=== PATIENT | male | born 1955 | race Caucasian/White ===

== ENCOUNTER 2023-01-11 11:49 | Emergency (ER) | payer MEDICARE ==
[~2023-01-11] VITALS: Ht 177.8 cm; Wt 97.5 kg
[2023-01-11] MEDS ORDERED: Percocet 5-3251 EACH PO (16:12)
[2023-01-11 17:06] VITALS: BP 132/83
== END 2023-01-11 16:53 | disposition home or self-care (01) ==
LOC: ER 11:49
DX: S82.842A Displaced bimalleolar fracture of left lower leg, initial encounter for closed fracture (principal); W18.30XA Fall on same level, unspecified, initial encounter
CPT/HCPCS: 27810; 73590; 73600; 73610; 96374-59; 96375-59; 99152; 99284-25; J1170; J1885; J2405; J2704; J7030

== ENCOUNTER 2023-01-14 10:52 | Day surgery (SDC) | payer OTHER, MEDICARE ==
[~2023-01-14] VITALS: Ht 177.8 cm; Wt 101.4 kg
[2023-01-14] VITALS (8 sets, daily range): BP systolic 131–160; BP diastolic 64–89
[~2023-01-14 10:52] MED LIST: Percocet 5-3251 EACH PO
--- NOTE | 2023-01-14 12:39 | NUR ---
Ambulatory w/knee scooter in Day Surgery. History, Chart, Medications and Allergies reviewed before start of procedure. Patient confirms NPO status and agrees with scheduled surgery. Pre-Op teaching done. Pt verbalizes understanding. Patient States Post-Procedure ride home has been arranged.
--- NOTE | 2023-01-14 13:50 | NUR ---
TIME OUT COMPLETE AND NERVE BLOCK OF LLE PERFORMED AT BEDSIDE WITH
--- NOTE | 2023-01-14 16:47 | NUR ---
PT UP TO WC. Discharge instructions reviewed with patient. Patient verbalizes understanding. Copy given to patient to take home, WELL . Patient States Post-Procedure ride home has been arranged. Discharged via wheelchair to private car for ride home. PT REPORTS PAIN TOLERABLE. PT REPORTS READY TO GO HOME. VS TO PT'S BASELINE. CAP REFILL BRISK.SPLINT C/D/I.
== END 2023-01-14 16:47 | disposition home or self-care (01) ==
LOC: ORD 10:52 → ORSCMMR 10:52 → ORD 11:30
PROVIDERS: Podiatrist Foot & Ankle Surgery
PROC: 0QSK04Z Reposition Left Fibula with Internal Fixation Device, Open Approach (ICD-10-PCS; principal; 2023-01-14 12:30)
DX: S82.62XA Displaced fracture of lateral malleolus of left fibula, initial encounter for closed fracture (principal); S93.422A Sprain of deltoid ligament of left ankle, initial encounter; W01.0XXA Fall on same level from slipping, tripping and stumbling without subsequent striking against object, initial encounter; G47.33 Obstructive sleep apnea (adult) (pediatric)
CPT/HCPCS: A9270; C1713; J0171; J0690; J2250; J2704; J3010; J7120